=== PATIENT | female | born 1960 | race Caucasian/White ===

== ENCOUNTER 2020-10-11 03:04 | Emergency (ER) | payer BC ==
[~2020-10-11] VITALS: Ht 149.9 cm; Wt 81.8 kg
[2020-10-11 03:26] VITALS: Ht 149.9 cm; Wt 81.8 kg
[2020-10-11 04:56] VITALS: BP 167/79
== END 2020-10-11 04:56 | disposition home or self-care (01) ==
LOC: ED 03:04
DX: I16.0 Hypertensive urgency (principal); E11.9 Type 2 diabetes mellitus without complications; Z85.3 Personal history of malignant neoplasm of breast